=== PATIENT | female | born 1955 | race Hispanic/Latino ===

== ENCOUNTER 2022-07-07 13:25 | Emergency (ER) | payer MEDICARE ==
[2022-07-07] MEDS ORDERED: CEPHALEXIN500 MG PO (15:01)
[2022-07-07] MEDS ORDERED: IBUPROFEN600 MG PO (15:02)
[2022-07-07] MEDS ORDERED: FAMOTIDINE40 MG PO (15:03)
== END 2022-07-07 15:17 | disposition home or self-care (01) ==
LOC: FSED 13:32
DX: I80.3 Phlebitis and thrombophlebitis of lower extremities, unspecified (principal); M79.605 Pain in left leg; E78.5 Hyperlipidemia, unspecified
CPT/HCPCS: 80053; 81003; 85025; 99283